=== PATIENT | male | born 1985 | race Caucasian/White ===

== ENCOUNTER 2017-07-09 15:34 | Emergency (ER) | payer OTHER ==
[2017-07-09 15:39] VITALS: TEMP 98.3; BMI 21.2
[2017-07-09] MEDS ORDERED: SODIUM CHLORIDE 1,000 ML IV ONE ×2 (16:35→17:35)
--- NOTE | 2017-07-09 16:36 | PDOC ---
History of Present Illness - General History Source: Patient (Walks in to ED with complaints of Nausea/Vomiting and diarrhea. ) - History of Present Illness Timing/Duration: other (3 days. ) Severity: moderate Associated Symptoms: reports: other (Abdominal pain. ) <Fernando Jo - Last Filed: 07/09/17 17:40> - General History Source: Patient - History of Present Illness Timing/Duration: 24 hours, getting worse Severity: moderate Modifying Factors: improves with: rest Associated Symptoms: reports: denies symptoms <Yasmine Ramirez - Last Filed: 07/12/17 13:40> - General Chief Complaint: Vomiting/Diarrhea Stated Complaint: N/V/D Time Seen by Provider: 07/09/17 16:02 Past History <Fernando Jo - Last Filed: 07/09/17 17:40> - Travel Traveled outside of the country in the last 30 days: No Close contact w/someone who was outside of country & ill: No - Past Medical History COPD: No Other medical history: denies - Surgical History Other Surgical History: 07/12/17 13:37 denies - Suicide/Smoking/Psychosocial Hx Smoking History: Never smoked Hx Alcohol Use: No Drug/Substance Use Hx: No Substance Use Type: None <Yasmine Ramirez - Last Filed: 07/12/17 13:40> - Past Medical History Allergies/Adverse Reactions: Allergies Allergy/AdvReac Type Severity Reaction Status Date / Time No Known Allergies Allergy Verified 07/09/17 15:36 Home Medications: Ambulatory Orders NK [No Known Home Medication] 07/09/17 Review of Systems - Review of Systems HEENTM: Yes: Throat Pain ABD/GI: Yes: Nausea, Vomiting, Other (Abdominal pain. ) All Other Systems: Reviewed and Negative <Fernando Jo - Last Filed: 07/09/17 17:40> - Review of Systems Able to Perform ROS?: Yes Is the patient limited Telugu proficient: Yes Constitutional: Yes: Symptoms Reported, Loss of Appetite, Malaise, Weakness HEENTM: No: Symptoms Reported, See HPI, Eye Pain, Blurred Vision, Tearing, Recent change in vision, Double Vision, Cataracts, Ear Pain, Ocular Prothesis, Ear Discharge, Nose Pain, Nose Congestion, Tinnitus, Nose Bleeding, Hearing Loss , Throat Pain, Throat Swelling, Mouth Pain, Dental Problems, Difficulty Swallowing, Mouth Swelling, Other Respiratory: No: Symptoms reported, See HPI, Cough, Orthopnea, Shortness of Breath, SOB with Exertion, SOB at Rest, Stridor, Wheezing, Productive cough, Hemoptysis, Other Cardiac (ROS): No: Symptoms Reported, See HPI, Chest Pain, Edema, Irregular Heart Rate, Lightheadedness, Palpitations, Syncope, Chest Tightness, Other ABD/GI: Yes: See HPI Neurological: No: Symptoms reported, See HPI, Headache, Numbness, Paresthesia, Pre-Existing Deficit, Seizure, Tingling, Tremors, Weakness, Unsteady Gait, Ataxia, Dizziness, Other Psychiatric: No: Anxiety, Depression, Frequent Crying, Stressors, Sleep Pattern Change, Emotional Problems, Mood Swings, Change in Appetite, Other All Other Systems: Reviewed and Negative <Yasmine Ramirez S - Last Filed: 07/12/17 13:40> *Physical Exam - Vital Signs Last Vital Signs Temp Pulse Resp BP Pulse Ox 98.3 F 133 H 18 142/102 99 07/09/17 15:36 07/09/17 15:36 07/09/17 15:36 07/09/17 15:36 07/09/17 15:36 - Physical Exam HEENT: positive: Normal ENT Inspection, TMs Normal, Pharynx Normal Respiratory/Chest: positive: Lungs Clear, Normal Breath Sounds Cardiovascular: positive: Regular Rhythm, Tachycardia Gastrointestinal/Abdominal: positive: Normal Bowel Sounds, Soft Musculoskeletal: positive: Normal Inspection Extremity: positive: Normal Inspection Integumentary: positive: Normal Color Neurologic: positive: Fully Oriented, Motor Strength 5/5 <Fernando Jo - Last Filed: 07/09/17 17:40> - Vital Signs Last Vital Signs Temp Pulse Resp BP Pulse Ox 98.3 F 133 H 18 142/102 99 07/09/17 15:36 07/09/17 15:36 07/09/17 15:36 07/09/17 15:36 07/09/17 15:36 - Physical Exam General Appearance: Yes: Nourished, Appropriately Dressed, Thin Neck: positive: Supple <Yasmine Ramirez S - Last Filed: 07/12/17 13:40> Procedures - Additional Procedures Additional Procedures: other ( 1hour IV fluids, Status improving. Potassium PO given. ) <Fernando Jo - Last Filed: 07/09/17 17:40> ED Treatment Course - LABORATORY CBC & Chemistry Diagram: 07/09/17 16:30 07/09/17 16:30 <Fernando Jo - Last Filed: 07/09/17 17:40> - LABORATORY CBC & Chemistry Diagram: 07/09/17 16:30 07/09/17 16:30 <Yasmine Ramirez - Last Filed: 07/12/17 13:40> Medical Decision Making - Medical Decision Making Patient being observed for 2 hours every hour by the hour, receiving iv fluid, feeling progressively better 07/12/17 13:39 <Yasmine Ramirez - Last Filed: 07/12/17 13:40> *DC/Admit/Observation/Transfer - Attestations Scribe Attestion: 07/09/17 16:57 Documentation prepared by Fernando Jo, acting as medical staff coordinator for Yasmine Ramirez MD/DO. <Fernando Jo - Last Filed: 07/09/17 17:40> - Discharge Dispostion Admit: No <Yasmine Ramirez - Last Filed: 07/12/17 13:40> Diagnosis at time of Disposition: Gastroenteritis and colitis, viral, Dehydration - Discharge Dispostion Disposition: HOME Condition at time of disposition: Improved - Patient Instructions Printed Discharge Instructions: DI for Viral Gastroenteritis -- Adult
[2017-07-09 16:59] VITALS: BP 133/96; PULSE 105
[2017-07-09 17:00] LABS: EOS % 0.1 % (0-4.5); HEMATOCRIT 54.4 % (35.4-49); HEMOGLOBIN 18.8 GM/dl (11.7-16.9); LYMPH % 10.8 % (8-40); MCH 33.1 pg (25.7-33.7); MCHC 34.5 g/dl (32.0-35.9); MEAN CELL VOLUME 96.1 fl (80-96); MEAN PLT VOLUME 8.6 fl (7.5-11.1); MONO % 12.2 % (3.8-10.2); NEUT % 76.9 % (42.8-82.8); PLATELET COUNT 298 K/MM3 (134-434); RBC 5.66 M/mm3 (4.00-5.60); RDW 11.2 % (11.9-15.9); WHITE BLOOD COUNT 9.1 K/mm3 (4.0-10.8)
[2017-07-09 17:11] LABS: ALBUMIN 5.1 g/dl (3.5-5.0); ALK PHOS 36 U/L (32-92); ANION GAP 13 (8-16); BILIRUBIN,TOTAL 0.9 mg/dl (0.2-1.0); BLOOD UREA NITROGEN 43 mg/dl (7-18); CALCIUM 9.9 mg/dl (8.4-10.2); CHLORIDE 96 mmol/L (98-107); CO2 23 mmol/L (22-28); CREATININE 1.1 mg/dl (0.6-1.3); GLUCOSE,RANDOM 113 mg/dl (74-106); POTASSIUM 3.4 mmol/L (3.5-5.1); SGOT/AST 42 U/L (10-42); SGPT/ALT 57 U/L (10-40); SODIUM 132 mmol/L (136-145)
[2017-07-09] MEDS ORDERED: POTASSIUM CHLORIDE ORAL LIQUID 20 MEQ/15 ML PO ONE (17:35)
[2017-07-09] MEDS ORDERED: POTASSIUM CHLORIDE TABS 20 MEQ TABLET.ER (FP) PO ONE ×2 (17:44→17:59)
== END 2017-07-09 18:12 | disposition home or self-care (01) ==
LOC: FER 15:34
PROC: 3E0337Z Introduction of Electrolytic and Water Balance Substance into Peripheral Vein, Percutaneous Approach (ICD-10-PCS; principal; 2017-07-09)
DX: A08.4 Viral intestinal infection, unspecified (principal); E86.0 Dehydration
CPT/HCPCS: 36415; 80053; 85025; 99282-25